=== PATIENT | female | born 1980 ===

== ENCOUNTER 2017-01-04 15:54 | Emergency (ER) | payer OTHER ==
--- NOTE | 2017-01-04 16:11 | C.PDOC ---
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 Patient denies any other injury, head injury, leg pain, weakness or numbness. 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 Musculoskeletal: Positive for: Other ((+) Left ankle pain). Negative for: Leg Pain Neurological: Negative for: Weakness, Numbness Physical Exam - Physical Exam Appears: Non-toxic, No Acute Distress Skin: Warm, Dry, No Rash Head: Atraumatic, Normacephalic Eye(s): bilateral: Normal Inspection Oral Mucosa: Moist Extremity: No Calf Tenderness, Capillary Refill (<2), Other ((+) Left Ankle - Swelling and tenderness to the lateral and medial malleolus) Neurological/Psych: Oriented x3, Normal Speech, Normal Motor, Normal Sensation Gait: Steady ED Course And Treatment O2 Sat by Pulse Oximetry: 100 (on RA) Pulse Ox Interpretation: Normal - Other Rad X-Ray - Left Tibia/Fibula X-Ray: Viewed By Me, Read By Radiologist Interpretation: PROCEDURE: Radiographs of the left tibia and fibula. HISTORY: injury, pain lateral ankle. COMPARISON: None available. TECHNIQUE: Frontal and lateral views obtained. FINDINGS: BONES: Fractures of the distal tibia and fibula. Obliques fracture of the distal fibula above the ankle mortise. Medial malleolar fracture at the level of the ankle mortise. Questionable posterior malleolar fracture. JOINT SPACES: Unremarkable. OTHER FINDINGS: Soft tissue swelling attests to the acuity of the fracture. IMPRESSION: Acute fractures distal left tibia and fibula. X-Ray - Left Ankle X-Ray: Viewed By Me, Read By Radiologist Interpretation: PROCEDURE: Left Ankle Radiographs. HISTORY: injury, pain. COMPARISON: None. FINDINGS: BONES: Transverse nondisplaced fracture of the medial malleolus. Nondisplaced oblique fracture of the posterior malleolus. Oblique fracture of distal fibular diaphysis above the level of the plafond. There are several small displaced bony fragments, 1 adjacent to the medial malleolar fracture and 1 medial to the proximal aspect of the fibular fracture. JOINTS: Normal. No osteoarthritis. Ankle mortise maintained. Talar dome intact. SOFT TISSUES: Extensive medial soft tissue swelling. OTHER FINDINGS: None. IMPRESSION: Fracture of the medial and posterior malleoli and oblique fracture distal fibular diaphysis. Medical Decision Making Medical Decision Making: PLAN: * X-Ray - Left Tibia/Fibula, Left Ankle * Tylenol PO Case was discussed with Dr. Vasquez (Orthopedist oncall) who agrees to place patient in a splint and discharge home with Ortho follow up in 2-3 days. ORTHO CARE: Posterior and U splint was placed by generation technologist Andrei and CHRIS Scott. Leg is neurovascularly intact after procedure. Crutch training was done by generation technologist. Disposition - Disposition Referrals: Sofía Vasquez MD [Staff Provider] - [facility] [Outside] Disposition: HOME/ ROUTINE Disposition Time: 17:58 Condition: GOOD Additional Instructions: Follow up with the Orthropedist within 1-2 days. Return if worsened. Prescriptions: Acetaminophen [Tylenol] 325 mg PO Q6 PRN #30 tab PRN Reason: Pain, Mild (1-3) traMADol [Ultram] 50 mg PO Q6 PRN #20 tab PRN Reason: Pain Instructions: Ankle Fracture (ED) Forms: [employer]ogram (Faroese) Print Language: IRANIAN - Clinical Impression Clinical Impression: Bimalleolar ankle fracture - PA / SENIOR ADVOCATE / Resident Statement MD/DO has reviewed & agrees with the documentation as recorded. - Scribe Statement The provider has reviewed the documentation as recorded by the Scribe Татьяна Bazan All medical record entries made by the Scribe were at my direction and personally dictated by me. I have reviewed the chart and agree that the record accurately reflects my personal performance of the history, physical exam, medical decision making, and the department course for this patient. I have also personally directed, reviewed, and agree with the discharge instructions and disposition.
--- NOTE | 2017-01-04 16:39 | RAD ---
PROCEDURE: Radiographs of the left tibia and fibula. HISTORY: injury, pain lateral ankle COMPARISON: None available. TECHNIQUE: Frontal and lateral views obtained. FINDINGS: BONES: Fractures of the distal tibia and fibula. Obliques fracture of the distal fibula above the ankle mortise. Medial malleolar fracture at the level of the ankle mortise. Questionable posterior malleolar fracture. JOINT SPACES: Unremarkable. OTHER FINDINGS: Soft tissue swelling attests to the acuity of the fracture. IMPRESSION: Acute fractures distal left tibia and fibula.
--- NOTE | 2017-01-04 16:52 | RAD ---
PROCEDURE: Left Ankle Radiographs. HISTORY: injury, pain COMPARISON: None FINDINGS: BONES: Transverse nondisplaced fracture of the medial malleolus. Nondisplaced oblique fracture of the posterior malleolus. Oblique fracture of distal fibular diaphysis above the level of the plafond. There are several small displaced bony fragments, 1 adjacent to the medial malleolar fracture and 1 medial to the proximal aspect of the fibular fracture. JOINTS: Normal. No osteoarthritis. Ankle mortise maintained. Talar dome intact SOFT TISSUES: Extensive medial soft tissue swelling. OTHER FINDINGS: None. IMPRESSION: Fracture of the medial and posterior malleoli and oblique fracture distal fibular diaphysis.
[2017-01-04 18:04] VITALS: BP 124/79; PULSE 72; RESP 20; TEMP 98.3; O2SAT 100
== END 2017-01-04 18:31 | disposition home or self-care (01) ==
LOC: C.ER 15:54
DX: S82.842A Displaced bimalleolar fracture of left lower leg, initial encounter for closed fracture (principal); W10.8XXA Fall (on) (from) other stairs and steps, initial encounter; Y93.89 Activity, other specified; Y92.89 Other specified places as the place of occurrence of the external cause

== ENCOUNTER 2017-01-15 10:13 | Emergency (ER) | payer OTHER ==
[2017-01-15 10:44] VITALS: O2SAT 100
--- NOTE | 2017-01-15 12:52 | C.PDOC ---
Addendum entered and electronically signed by Sussy Coughlin PA 01/15/17 18: 40: Addendum Addendum: 01/15/17 18:37 Addendum: Gait: Unable to assess. Progress Notes: Case discussed with Dr Smart who came to ER to evaluate pt. Dr Smart performed closed reduction. Original Note: History Of Present Illness <Sussy Coughlin - Last Filed: 01/15/17 18:37> <Pina Quintero - Last Filed: 01/15/17 18:52> 36 y/o female presents to ED for evaluation of swelling and bruising of left leg. Patient was seen at ED 2 weeks ago s/p trip and fall and was diagnosed with bimalleolar fracture. Patient reports she has not been able to follow up with Ortho secondary to angélica care issues and comes to ed for evaluation of increased swelling and bruising. Patient denies new injury, numbness, weakness or any other complaints at this time. (Sussy Coughlin) History Per: Patient, Manager Image History/Exam Limitations: no limitations Onset/Duration Of Symptoms: Days Current Symptoms Are (Timing): Still Present <Sussy Coughlin - Last Filed: 01/15/17 18:37> <Pina Quintero - Last Filed: 01/15/17 18:52> Time Seen by Provider: 01/15/17 11:17 Chief Complaint (Nursing): Lower Extremity Problem/Injury Past Medical History Reviewed: Historical Data, Nursing Documentation, Vital Signs - Medical History PMH: Hypothyroidism Surgical History: No Surg Hx Family History: States: No Known Family Hx - Social History Hx Alcohol Use: No Hx Substance Use: No - Immunization History Hx Tetanus Toxoid Vaccination: No Hx Influenza Vaccination: No Hx Pneumococcal Vaccination: No <Sussy Coughlin - Last Filed: 01/15/17 18:37> Vital Signs: Last Vital Signs Temp 98.2 F 01/15/17 16:32 Pulse 90 01/15/17 16:32 Resp 18 01/15/17 16:32 BP 109/75 01/15/17 16:32 Pulse Ox 100 01/15/17 16:44 Review Of Systems Except As Marked, All Systems Reviewed And Found Negative. Constitutional: Negative for: Fever, Chills Cardiovascular: Negative for: Chest Pain Respiratory: Negative for: Shortness of Breath Musculoskeletal: Positive for: Leg Pain Skin: Positive for: Bruising. Negative for: Rash Neurological: Negative for: Weakness, Numbness <Sussy Coughlin - Last Filed: 01/15/17 18:37> Physical Exam - Physical Exam Appears: Non-toxic, No Acute Distress Skin: Warm, Dry, No Rash, Ecchymosis ((+) ecchymosis diffusely from below knee to foot) Head: Atraumatic, Normacephalic Eye(s): bilateral: Normal Inspection, EOMI Nose: Normal Oral Mucosa: Moist Neck: Normal ROM, Supple Chest: Symmetrical Cardiovascular: Rhythm Regular Respiratory: Normal Breath Sounds Gastrointestinal/Abdominal: Soft, Other (obese) Extremity: Normal ROM, Tenderness (diffuse ankle ), No Calf Tenderness, Capillary Refill (<2 sec), Swelling (diffuse) Pulses: Left Dorsalis Pedis: Normal, Right Dorsalis Pedis: Normal Neurological/Psych: Oriented x3, Normal Speech, Normal Sensation Gait: Steady <Sussy Coughlin - Last Filed: 01/15/17 18:37> ED Course And Treatment O2 Sat by Pulse Oximetry: 100 (RA) Pulse Ox Interpretation: Normal - Other Rad ankle XR X-Ray: Interpreted by Me, Viewed By Me Interpretation: (+) incresaed angulation to fibula (+) bimalleolar fracture Progress Note: Case discussed with Dr Vasquez , who was environmental permitting specialist at the evaluation on 01/04/17. He requests podiatry evaluation. CAse dsicussed with Dr Smart who came to ER to evaluate pt. Dr Smart preformed closed reduction with Dr Quintero. Cast applied by Dr Smart. Physical therapy at bedside with walker. Pt is alert, awake, and notes she feels well. Has no complaints. Instructed to f/u with Dr Perera. <Sussy Coughlin - Last Filed: 01/15/17 18:37> Supervising Attending Note <Sussy Coughlin - Last Filed: 01/15/17 18:37> - Supervising Attending Note The Documented history was done by the: Physician Earth Science Teacher The documented physical exam was done by the: Physician Earth Science Teacher The documented procedures were done by the: Physician Earth Science Teacher EM CAVEAT: Language Barrier - Attestation: I have personally seen and examined this patient.: Yes I have fully participated in the care of the patient.: Yes I have reviewed all pertinent clinical information, including history, physical exam and plan: Yes <Pina Quintero - Last Filed: 01/15/17 18:52> - Notes: Notes:: PERSIST FX DISLOC. PT WALKING W ER SPLINT. STATES UNABLE TO FU DUE TO INSURANCE PROBLEM. EXAM ABOVE. NPO SINCE 0700. PT REQUIRING REDUCTION W CONSC SEDATION. (Pina Quintero) Progress <Sussy Coughlin - Last Filed: 01/15/17 18:37> - Data Reviewed Data Reviewed: Diagnostic imaging - Continuity of Care Discussed patient case with:: Patient Discussed pt. case with senior health consultant/specialty: Podiatry <Pina Quintero - Last Filed: 01/15/17 18:52> - Re-Evaluation Re-evaluation Note: 01/15/17 15:27 POST REDUCTION FILM REVIEWED BY PODIATRY (Pina Quintero) Disposition <Sussy Coughlin - Last Filed: 01/15/17 18:37> Counseled Patient/Family Regarding: Studies Performed, Diagnosis, Need For Followup - Disposition Disposition Time: 15:50 <Pina Quintero - Last Filed: 01/15/17 18:52> - Disposition Referrals: [facility] [Outside] [facility] [Outside] Podiatry Clinic [Outside] Micaela Perera DPM [Staff Provider] - Disposition: HOME/ ROUTINE Condition: IMPROVED Additional Instructions: NO COLOQUE NINGN PESO EN LA PIERNA DERECHA. UTILICE EL CAMINANTE SEGN LO INDICADO. SEGUIMIENTO DE LA CLNICA DE PODIATRA EN 01/21 Instructions: Ankle Fracture (ED), Cast Care (ED), Moderate Sedation (ED) Forms: iMemories (Lithuanian) Print Language: IRISH - Clinical Impression Clinical Impression: Fracture dislocation of ankle - PA / BOOK CANVASSER / Resident Statement MD/DO has reviewed & agrees with the documentation as recorded. - Scribe Statement The provider has reviewed the documentation as recorded by the Scribe <Sussy Coughlin - Last Filed: 01/15/17 18:37> <Pina Quintero - Last Filed: 01/15/17 18:52> - Scribe Statement [place] All medical record entries made by the Scribe were at my direction and personally dictated by me. I have reviewed the chart and agree that the record accurately reflects my personal performance of the history, physical exam, medical decision making, and the department course for this patient. I have also personally directed, reviewed, and agree with the discharge instructions and disposition. (Sussy Coughlin) Prod Sedation PRE-PROCEDURE <Sussy Coughlin - Last Filed: 01/15/17 18:37> - Pre-Anesthesia Past Medical History: Medications Reviewed, Allergies Reviewed, Record Review Previous Surgies: Reviewed Family History/Social History: Reviewed - Physical Exam/Review of Systems Vital Signs Reviewed: Yes Cardiovascular: Regular Rate and Rhythm, Murmurs, Normal S1, S2 Respiratory/Chest: Good Air Exchange Neurological: GCS=15, CN II-XII Intact, Speech Normal Mental Status: Alert and Oriented X 3 - Pre-Procedure Airway Assessment History of difficult intubation or surgical airway (i.e trach):: No Inability to extend neck:: Yes Mouth opening less than two finger breadth:: No Diagnosis of sleep apnea:: No ASA Criteria: 1 - Healthy, normal. 2 - Mild systemic disease (No functional limitations, mildline obesity, DM withot complications, Hypertention). 3 - Severe systemic disease (Some functional limitation, stable angina, morbid obesity, controlled COPD/Asthma/CHF). 4 - Sever systemic disease constant threat to life (Unstable angina, active symptoms of COPD/Asthma, CHF/ Hypertension. 5 - Moribund ASA Clarification: ASA II Mallampati (airway): Class III <Pina Quintero - Last Filed: 01/15/17 18:52> - Pre-Anesthesia Chief Complaint: Lower Extremity Problem/Injury Prod Sedation INTRA-PROCEDURE <Sussy Coughlin - Last Filed: 01/15/17 18:37> <Pina Quintero - Last Filed: 01/15/17 18:52> - Medications Medications Given: Discontinued Medications Fentanyl (Fentanyl) Confirm Administered Dose 100 mcg .ROUTE .STK-MED ONE Stop: 01/15/17 15:01 Sodium Chloride (Sodium Chloride 0.9%) Confirm Administered Dose 1,000 mls @ ud .ROUTE .STK-MED ONE Stop: 01/15/17 14:40 Sodium Chloride (Sodium Chloride 0.9%) 1,000 mls @ 1,000 mls/hr IV .Q1H ONE Stop: 01/15/17 15:52 Last Admin: 01/15/17 14:53 Dose: 1,000 mls/hr eMAR Start Stop Document 01/15/17 14:53 THEODORE (Rec: 01/15/17 15:50 THEODORE [id number]) Intravenous Solution Start Date 01/15/17 Start Time 14:53 End Date 01/15/17 End time 15:50 Total Infusion Time 57 Propofol (Diprivan) Confirm Administered Dose 200 mg .ROUTE .STK-MED ONE Stop: 01/15/17 14:40 Propofol (Diprivan) 50 mg IV ONCE ONE Stop: 01/15/17 14:55 Propofol (Diprivan) 200 mg IV ONCE ONE Stop: 01/15/17 14:57 Vital Signs: SEE RN NOTES (Pina Quintero) Proc Sedation POST-PROCEDURE <Sussy Coughlin - Last Filed: 01/15/17 18:37> - Discharge Checklist Written MD order for Discharge: Yes Vital signs assessed and are consistent with pre-procedure reading: Yes Minimal nausea, vomiting, and dizziness: Yes Ambulates to pre-procedural level: Yes Alert and oriented to pre-procedural level: Yes Responsible adult escort present: No - X DISCHARGE INSTRUCTIONS GIVEN:: Yes <Pina Quintero - Last Filed: 01/15/17 18:52> - Post Procedure Physician Note Post Procedure Note: PT TOLERATED WELL. NARD VSS. FX REDUCED, CASTED BY PODIATRY CONTRARY TO MEDICATION ADMIN RECORD DUE TO EMR ERROR, PT ONLY RECEIVED 100 MG PROPOFOL DURING PROCEDURE. NO FENTANYL GIVEN. (Pina Quintero)
--- NOTE | 2017-01-15 14:31 | RAD ---
PROCEDURE: Left Ankle Radiographs. HISTORY: pain COMPARISON: 01/04/2017 FINDINGS: BONES: The oblique distal fibular shaft fracture fragments appear increased in their spacing with interval increased anterior apical angulation deformity suggested here as well. Posterior malleoli fracture with 3.9 mm separation of fracture ends. ; extension into the tibiotalar joint. There is interval anterior" opening up" of the tibiotalar joint and interval increased tibial fibular widening of the ankle mortise. The horizontal medial malleoli non fracture extends into the tibiotalar joint and is similar-appearing JOINTS: . No osteoarthritis. Anterior tibiotalar joint ossific fracture fragments Ankle mortise interval increase widening. Talar dome intact SOFT TISSUES: Diffuse soft tissue swelling OTHER FINDINGS: None. IMPRESSION: Bimalleolar fractures with changes in fractures as above distal tibial metaphyseal metaphyseal oblique fracture with sliver like 4x 2 mm fracture fragment projecting over the tibial fibular high syndesmosis. Interval anterior subluxation of the tibia relative to the talus - concerning for a developing more complete anterior tibial dislocation .
[2017-01-15] MEDS ORDERED: Sodium Chloride 0.9% 1,000 ML ONE (14:39)
[2017-01-15] MEDS ORDERED: Propofol 10 mg/ml Inj (20 ML) ONE (14:39)
--- NOTE | 2017-01-15 14:44 | CP.PCM.CON ---
History of Present Illness - History of Present Illness History of Present Illness: Podiatry Consult Note- Dr. Perera This is a 36 yo female patient who presents to ED today with complaint of left lower extremity swelling. Of note, patient was recently seen in [facility] [place] ED for same problem 2 weeks ago s/p fall down stairs. Pt was diagnosed with ankle fracture at that time, splinted and advised to follow up with orthopedics. Pt states that she was not able to follow up as she needs to apply for [employer]. Pt is seen today with posterior splint clean and intact to left lower extremity with cast boot. Pt says she has been using crutches for ambulation and does admit that she has been walking on the left foot. Denies any new injuries, denies numbness or tingling, denies any pain today. Is asking if she can apply for [employer]. Pt has been NPO since 7am this morning. Review of Systems - Review of Systems Review of Systems: all systems reviewed and found to be negative except HPI Past Patient History - Infectious Disease Hx of Infectious Diseases: None - Past Social History Smoking Status: Never Smoked - ENDOCRINE/METABOLIC Hx Hypothyroidism: Yes - PSYCHIATRIC Hx Substance Use: No - SURGICAL HISTORY Hx Surgeries: Yes Hx Eye Surgery: Yes Other/Comment: right eye cornea transplant. - ANESTHESIA Hx Anesthesia: Yes Hx Anesthesia Reactions: No Meds Allergies/Adverse Reactions: Allergies Allergy/AdvReac Type Severity Reaction Status Date / Time No Known Allergies Allergy Verified 01/15/17 10:44 Physical Exam - Constitutional Appears: Non-toxic, No Acute Distress - Extremities Exam Extremities exam: Negative for: calf tenderness Additional comments: LLE exam: VASC- DP/PT pulses are palpable, skin temp runs warm to cool (proximal to distal ), cap refill < 3 sec to all digits, moderate non-pitting edema noted to dorsum , medial and lateral aspect of ankle, pedal hair is noted NEURO- pedal sensation is grossly intact DERM- ecchymosis noted to medial malleolus as well as to posterior-superior calcaneus medial side with a small fx blister noted proximal to medial malleolus , ecchymosis is also notedto lateral malleolus and also posterior-superior aspect of calcaneus lateral side ORTHO-distal aspect of tibia appears anteriorly dislocated at ankle joint, pt able to wiggle all toes freely, unable to DF/PF at ankle due to guarding, minimal tenderness on palp of ankle joint - Neurological Exam Neurological exam: Alert, CN II-XII Intact, Oriented x3 - Psychiatric Exam Psychiatric exam: Normal Affect, Normal Mood Results - Vital Signs Recent Vital Signs: Last Vital Signs Temp 98.3 F 01/15/17 10:41 Pulse 76 01/15/17 10:41 Resp 18 01/15/17 10:41 BP 132/81 01/15/17 10:41 Pulse Ox 100 01/15/17 13:06 Assessment & Plan - Assessment and Plan (Free Text) Assessment: 36 yo female pt with unremarkable pmh seen in ED for displaced left tri- malleolar fx 05/24 trauma Plan: Pt S&E at bedside in ED Plan discussed with attending Dr. Perera in detail Left ankle x-ray reviewed: findings consistent with displaced tri-malleolar fx left ankle with anterior dislocation of tibia at ankle joint Written consent obtained from pt for closed reduction of left ankle joint Written consent obtained from pt for conscious sedation by ED attending (Dr. Quintero) All questions and concerns addressed with pt prior to procedure. Advised pt that she will require ankle surgery Once adequate anesthesia achieved the left foot was distracted at the ankle joint with attempt to realign the ankle mortise Adequate reduction confirmed with bedside radiographs. Below knee cast applied to left leg (with plenty of cast padding and fiberglass cast) Pt tolerated procedure well without incident, able to wiggle all toes freely, cap refill normal to toes Stressed to pt importance of compliance with strict NWB to LLE PT recommends D/C with walker RICE therapy Pain meds per ED F/u with Dr. Micaela Perera, [facility] next Sunday 01/21
[2017-01-15] MEDS ORDERED: Sodium Chloride 0.9% 1,000 ML IV ONE (14:53)
[2017-01-15] MEDS ORDERED: Propofol 10 mg/ml Inj (20 ML) IV ONE ×2 (14:54→14:56)
--- NOTE | 2017-01-15 15:37 | RAD ---
PROCEDURE: Left Ankle Radiographs. HISTORY: closed reduction procedure left ankle fx COMPARISON: 01/15/2017 1302 HOURS FINDINGS: BONES: Normal. No fractureThe 5 malleoli are fracture (medial malleolus and posterior malleolus are renoted. The oblique distal fibular metaphyseal to metaphyseal fracture is renoted. There is less opening and return to more normal anatomical relations of the tibia and talus on the lateral postreduction image. Currently no subluxation or dislocation at this tibiotalar level on the lateral view suggested the prior displacement widening of the distal fibular shaft fractures are similar in appearance however the ankle mortise prior widening is no longer seen on this exam. The medial malleolar fracture extends into the tibiotalar joint. Even the medial malleolar fracture alignment is improved since the prior exam. Surrounding soft tissue swelling. Diffuse lower leg subcutaneous edema. JOINTS: As above. The talar dome appears intact SOFT TISSUES: Diffuse swelling OTHER FINDINGS: None. IMPRESSION: Postreduction with return to more normal anatomical alignment of most of the aforementioned fracture fragments
--- NOTE | 2017-01-15 15:39 | VASCLAB ---
PROCEDURE: Left Lower Extremity Venous Duplex Exam. HISTORY: pain PRIORS: None. TECHNIQUE: Left common femoral, femoral, popliteal and posterior tibial, peroneal and great saphenous veins were evaluated. Flow was assessed with color Doppler, compressibility, assessment of phasic flow and augmentation response. Report prepared by RAUL Gomez, RVT FINDINGS: LEFT: 1. Common Femoral Vein: 1.1. Compressibility - Fully compressible: Thrombus - None : Flow - Phasic: Augmentation -Normal: Reflux - None. 2. Femoral Vein: 2.1. Compressibility - Fully compressible: Thrombus - None: Flow - Phasic: Augmentation -Normal: Reflux - None. 3. Popliteal Vein: 3.1. Compressibility - Fully compressible: Thrombus - None: Flow - Phasic: Augmentation -Normal: Reflux - None. 4. Posterior Tibial Vein: 4.1. Compressibility - Fully compressible: Thrombus - None: Flow - Phasic: Augmentation -Normal: Reflux - None. 5. Peroneal Vein: 5.1. Compressibility - Fully compressible: Thrombus - None: Flow - Phasic: Augmentation -Normal: Reflux - None. 6. Great Saphenous Vein: 6.1. Compressibility - Fully compressible: Thrombus - None: Flow - Phasic: Augmentation - Normal: Reflux - None. OTHER FINDINGS: IMPRESSION: No evidence of deep or superficial vein thrombosis of the left lower extremity with excellent venous flow. Normal valve function noted of the left side. Normal venous flow noted in the right common femoral vein.
[2017-01-15 16:32] VITALS: BP 109/75; PULSE 90; RESP 18; TEMP 98.2
== END 2017-01-15 17:01 | disposition home or self-care (01) ==
LOC: C.ER 10:13
DX: S82.842D Displaced bimalleolar fracture of left lower leg, subsequent encounter for closed fracture with routine healing (principal); W10.8XXD Fall (on) (from) other stairs and steps, subsequent encounter
CPT/HCPCS: 27810; 73600; 73610; 93971; 96360; 97116; 97161; 99285; G8978; G8979; G8980; J7040

== ENCOUNTER 2017-01-23 10:50 | Day surgery (SDC) | payer OTHER ==
[2017-01-22 08:16] VITALS: BMI 30.7
[2017-01-23] MEDS ORDERED: ceFAZolin IV 2 gm in Dextrose 1 GM/50 ML BAG IVPB ONE (11:52)
[2017-01-23] MEDS ORDERED: Bupivacaine 0.5% Inj(30mL) ONE ×2 (11:52→16:01)
[2017-01-23] MEDS ORDERED: Lidocaine 2% Inj (20ml) ONE (11:52)
[2017-01-23] MEDS ORDERED: Lactated Ringer's 1,000 ML IV ONE (12:10)
[2017-01-23] MEDS ORDERED: Midazolam 2 MG/2 ML VIAL ONE (12:13)
[2017-01-23] MEDS ORDERED: Propofol 10 mg/ml Inj (20 ML) ONE (12:14)
[2017-01-23] MEDS ORDERED: Sodium Chloride 0.9% 20 ML IV ONE (13:10)
[2017-01-23] MEDS ORDERED: Morphine 4 MG/ML VIAL ONE ×2 (13:18→14:35)
[2017-01-23] MEDS ORDERED: HYDROmorphone 0.5 mg/0.5 ml ISec IVP PRN (16:15)
[2017-01-23] MEDS ORDERED: Oxycodone/Acetaminophen 5/325 mg Tab PO PRN ×2 (16:25)
--- NOTE | 2017-01-23 16:30 | PCM.SURG1 ---
Surgeon's Initial Post Op Note - Surgeon's Notes Surgeon: Dr. Perera Grizzly Worker: Sherman Kelsey Kuizinas, PGY-3 Type of Anesthesia: General LMA, Block Regional (popliteal) Anesthesia Administered By: Dr. Carbajal Pre-Operative Diagnosis: Left ankle- displaced trimalleolar ankle fracture Operative Findings: See dictation. Hemostasis: PTT at 350mmHg. Materials: Synthes 10-hole one-third tubular fibular plate; 3.5x16mm cortex screw; 3.5x14mm cortex screw; 4.0 x18mm cancellous screw; 3.5x10 and 12mm locking screws; 4.0mm cannulated screw x2; 2-0, 3-0, 4-0 vicryl; 3-0 nylon; betadine- soaked adaptic, 4x4 gauze, ABD pads, kerlix, stockinette, webril, posterior splint with AO modification, ALIE bandages. Injectables: 10cc 0.5% marcaine plain post-op for saphenous n. block. Condition: Stable Post-Operative Diagnosis: Same as above Operation Performed: Left ankle: open reduction and internal fixation of fibular and medial malleolar fracture with plate and screw fixation Specimen/Specimens Removed: None Estimated Blood Loss: EBL {In ML}: 50 Blood Products Given: N/A Drains Used: No Drains Post-Op Condition: Good Date of Surgery/Procedure: 01/23/17 Time of Surgery/Procedure: 12:00
[2017-01-23] MEDS ORDERED: Bupivacaine HCl 0.25% PF (10 ml) Inj ONE ×2 (17:44)
--- NOTE | 2017-01-23 17:59 | RAD ---
PROCEDURE: Left Ankle Radiographs. HISTORY: s/p Left ankle ORIF COMPARISON: None FINDINGS: BONES: Status post open reduction and internal fixation of comminuted nondisplaced fracture in the distal fibula and nondisplaced fracture in the medial malleolus. There are 2 metallic screws through the medial malleolus and transfixation of the distal fibular fracture with a metallic plate and multiple screws. JOINTS: Normal. Ankle mortise maintained. Talar dome intact SOFT TISSUES: There is moderate periarticular soft tissue swelling. OTHER FINDINGS: None. IMPRESSION: Status post open reduction and internal fixation of comminuted nondisplaced fracture in the distal fibula and nondisplaced medial malleolar fracture. No acute complications.
[2017-01-23 18:10] VITALS: TEMP 98; O2SAT 97
[2017-01-23 18:36] VITALS: BP 146/74; PULSE 90; RESP 13
--- NOTE | 2017-01-23 18:48 | PCM.ANESB2 ---
Popliteal Nerve Block - Popliteal Nerve Block Procedure Performed: Popliteal Nerve Block Left - Procedure Popliteal Nerve Block: This procedure was explained to the patient that it is for post-operative pain management. Consent was obtained after a thorough discussion with the patient regarding the benefits and possible complications of local anesthetic block of the sciatic nerve at the popliteal level. The patient was brought to the operating room and standard monitors are applied. Time-out was held with the circulating nurse to confirm the correct surgery and the appropriate block at 17 :55. After applying oxygen by nasal cannula and administering IV Sedation, patient's LEFT operative leg was gently raised and supported and the groove in between the biceps femoris and vastus lateralis muscles was carefully palpated. The skin approximately 8cm above the popliteal crease was then marked. The ultrasound transducer was then applied to the posterior thigh approximately 8cm above the popliteal crease in the transverse plane and the sciatic nerve before its division was visualized lateral to the popliteal artery and in between the bicep femoris and semimembranosus/semitendinosus muscles. After identification, the lateral portion of the thigh was prepped with Betadine solution three times and Lidocaine 1% was injected subcutaneously for topical anesthesia. At this point, a # 21 gauge Stimuplex insulated 4 inch needle was inserted into pre-marked area and advanced in a perpendicular direction. The needle was inserted above the ultrasound transducer in-plane towards the sciatic nerve in a [id number] direction. Needle advancement was performed carefully under direct ultrasound visualization. No paresthesias. After repeated negative aspiration, _5___ cc of _0.25_% _bupivicainewas injected and this was flowed with ___15___ cc of _0.25_% _bupivicaine__. Under ultrasound guidance the local anesthetics were observed surrounding sciatic nerve . The needle was removed intact and sterile dressing was applied. The patient tolerated the popliteal nerve block well with stable vital signs, no complaints.
--- NOTE | 2017-01-24 15:34 | RAD ---
PROCEDURE: Intraoperative Fluoroscopy. HISTORY: Left ankle fracture FINDINGS: Fluoroscopic assistance was provided for left ankle open reduction internal fixation. Please refer to the operative report from
--- NOTE | 2017-01-27 16:01 | PCM.OP ---
Operative Report - Operative Report Date of Surgery/Procedure: 01/23/17 Time of Surgery/Procedure: 12:00 Surgeon: Micaela Perera DPM Program Paraprofessional: Don Kelsey DPM PGY-3; Mckinley Whitaker DPM PGY-3; Earline Warren DPM PGY-3 Anesthesia/Sedation: General LMA with popliteal block Pre-Operative Diagnosis: Left ankle- displaced ankle fracture with syndesmotic instability Post-Operative Diagnosis: Same as above Indication for Surgery: The patient is a 36 year-old female who presented to the ED after falling and injuring her Left ankle on December. Her radiographs revealed a displaced Left trimalleolar ankle fracture with no acute dislocation of the joint. Upon discharge, the patient was unable to follow-up for further treatment of her ankle fracture and returned to the [facility] [place] ED again on January 15, 2017. Her new Left ankle radiograps revealed dislocated trimalleolar fracture. She was closed reduced under conscious sedation and was advised to follow-up at the [facility] outpatient podiatry clinic with Dr. Perera. At this follow-up visit, she was scheduled for Left ankle ORIF. The patient signed the consent after careful explanation of risks, benefits, complication and alternatives for surgical procedure. No guarantees were given nor implied. 2 gram of ancef IV were given to the patient prior to the procedure. The patients NPO status was confirmed prior to taking pt to the OR. Operative Findings: See below Procedure/Operation Description: Preparation: The patient was brought to the operating room and placed on the operating room table in supine position. Time- out was performed for identification of the correct patient and the correct procedure. Upon induction of general anesthesia, A well-padded pneumatic thigh tourniquet was placed to the patient's Left thigh. A hip bump was then placed under the ipsilateral hip to internally rotate the leg and to allow for better visualization of the operative site. The LLE was then prepped and draped in usual sterile manner. Esmarch was then utilized to exsanguinate the patients LLE. Pneumatic thigh tourniquet was then inflated to 350 mmHg and procedure began. Procedure #1: Left ankle- open reduction and internal fixation of displaced bimalleolar fracture with plate and screw fixation. . Attention was now directed to the lateral aspect of the patients Left ankle. Using a #15 blade, an approximately 15cm linear longitudinal incision was created overlying the midline of the distal fibular shaft encompassing the lateral malleolus. The distal end of the incision was mildly curvilinear in nature to follow the contour of the lateral malleolus. The incision was deepened through the subcutaneous tissues using sharp and blunt dissection. Care was taken to identify and retract all vital neurovascular structures and all bleeders were cauterized and ligated as necessary. At this time, blunt dissection was carried down to the level of the periosteum. Next, a fresh #15 blade was used to make a linear periosteal incision. The periosteal tissues were then carefully dissected free of their osseous attachments both anteriorly and posteriorly to expose the oblique fracture into the operative field. At this time, the fracture site was gently distracted in order to evacuate the hematoma and any interposed fibrotic tissue from the fracture site.. Next, with the use of a large bone clamp, the capital fragment of the distal fibular fracture was then grasped and was manually reduced back into normal anatomic alignment. Upon this reduction, a prominent lateral spike was still noted at the proximal aspect of the fibular fracture. This spike was carefully resected using a small bone cutter to ensure there was no more sharp osseous prominences at the lateral aspect of the of the fibula. Once adequate positioning was achieved using intra -operative fluoroscopy, 2 0.062 inch K-wires were now inserted perpendicular to the fracture site for temporary fixation. At this time, using standard AO principles and techniques, a Synthes cortical screw measuring 3.5mm x 16mm was inserted across the fracture site with excellent compression noted. At this time , a Synthes 10-hole one-third tubular plate was positioned on the lateral aspect of the fibula. The holes of the distal fibular plate were then filled with the following screws using standard AO principles and techniques: 3.5x14mm cortex screw, 4.0 x18mm cancellous screw, two 3.5x10 locking screws and two 3.5x12mm locking screws. At this time, multiple intraoperative fluoroscopic images were taken to assess adequate positioning of the hardware and fracture reduction, both of which were noted to be excellent. At this time, the surgical site was irrigated with a copious amount of sterile normal saline. . Next, attention was directed to the medial aspect of the Left ankle at the level of the medial malleolus where a displaced transverse distal medial malleolar fracture was present. Using a fresh #15 blade, an approximately 6cm linear incision was created from superior to inferior along the distal aspect of medial malleolus. The incision was deepened through the subcutaneous tissues using sharp and blunt dissection. Care was taken to identify and retract all vital neurovascular structures. All bleeders were cauterized and ligated as necessary. A periosteal incision was then created and the fracture site was now exposed. A bone curette was now used to remove any coagulated blood and fibrous tissue from the fracture site and the surgical site was then copiously irrigated with sterile normal saline. At this time, the medial malleolus was placed in an anatomically reduced position and temporarily fixated with 2 parallel K-wires crossing the fracture site. The K-wires were inserted using a cannulated guide. Anatomic latter-day was confirmed with multiple AP and lateral fluoroscopic images. Next, following standard AO principles and techniques, and following subsequent removal of the K-wires, 2 Synthes partially threaded 4.0mm cannulated screws were inserted across the medial malleolar fracture site with excellent compression noted. Final fluoroscopic images were taken to reveal excellent anatomic latter-day of the fracture sites and good alignment of all the inserted hardware. The posterior malleolar fracture also appeared to be reduced back into normal anatomic alignment and it was decided that it did not need to be fixated. Procedure #2: Left ankle- syndemosis repair using [employer] TightRope. Via the original incision along the lateral aspect of the fibula, a distance of approximately 1.5cm proximal to the ankle joint was measured. A K-wire from the [employer] TightRope set was utilized as a guide for the drill. The K-wire was driven from the lateral aspect of the fibula to the medial aspect of the tibia. A cannulated drill from the [employer] TightRope system was passed over the K-wire. Utilizing intraoperative fluoroscopy, the position of the K-wire and drill was identified on the AP, mortise, and lateral views. The K-wire and the drill from the [employer] TightRope system were removed. The TightRope was passed through the drill hole to the medial aspect of the joint. Care was taken to make sure that the button on the medial aspect of the ankle joint was in place and positioned flush against the medial tibial cortex. Once this was confirmed, the TightRope system was tightened down and the extra suture threads were then cut from the surgical site. At this time, both the medial and lateral incision sites were thoroughly irrigated with a copious amount of sterile normal saline. Deep tissue closure at both incision sites was performed using 2-0 and 3-0 vicryl. The subcutaneous tissues were then reapproximated and coapted using 4-0 vicryl. The skin at both incision sites was then reapproximated and coapted using 3-0 nylon via an interrupted horizontal mattress suture technique. A saphenous nerve block was then administered using approximately 10cc of 0.5% Marcaine plain. The Left ankle was now dressed with betadine-soaked adaptic, 4x4 gauze, ABD pads and kerlix. A well-padded posterior splint with an AO modification was now applied to the Left lower extremity while maintaining the ankle dorsiflexed to 90 degrees. The attending, Dr. Perera, was present throughout the entire case. Estimated Blood Loss: 50 Complications: None Discharge & Condition: The patient tolerated the procedure and anesthesia well and with no complications. The patient was escorted to the recovery room with vital signs stable and neurovascular status intact to the Left lower extremity. The patient was instructed to remain NWB to the Left lower extremity. She received prescriptions for Keflex, Percocet and Lovenox 40mg SC prior to discharge. She is to follow-up with Dr. Perera at the outpatient podiatry clinic on an outpatient basis.
== END 2017-01-23 19:15 | disposition home or self-care (01) ==
LOC: C.SDS 10:50
PROVIDERS: ATTEND Podiatrist Foot & Ankle Surgery
DX: S82.851A Displaced trimalleolar fracture of right lower leg, initial encounter for closed fracture (principal); S82.852A Displaced trimalleolar fracture of left lower leg, initial encounter for closed fracture; X58.XXXA Exposure to other specified factors, initial encounter
CPT/HCPCS: 27823; 73610; C1713; C1769; J0690; J2250; J2270; J2704; J3010; J7120